=== PATIENT | female | born 1980 | race Asian ===

== ENCOUNTER 2018-07-16 00:39 | Inpatient (IN) | payer SELFPAY ==
[~2018-07-16] VITALS: Ht 162.6 cm; Wt 62.6 kg
[2018-07-16] MEDS: LR 1,000 ML IV SCH ×2 (01:05→04:43)
[2018-07-16] MEDS ORDERED: LR 1,000 ML IV ONE (01:07)
[2018-07-16] MEDS ORDERED: OXYTOCIN/0.9 % SODIUM CHLORIDE 1,000 ML IV SCH (01:07)
[2018-07-16] MEDS ORDERED: AMPICILLIN SODIUM 2 GM VIAL ONE (01:12)
[2018-07-16] MEDS ORDERED: AMPICILLIN SODIUM 2 GM in NS 100 ML IV ONE (01:15)
[2018-07-16] MEDS ORDERED: TERBUTALINE SULFATE 1 MG/ML VIAL SUBCUT ONE (01:15)
[2018-07-16] MEDS ORDERED: NALBUPHINE HCL 10 MG/ML AMP IVP PRN (01:15)
[2018-07-16 01:45] LABS: BASOPHILS # (AUTO) 0.1 K/uL (0.0-0.2); BASOPHILS % (AUTO) 0.6 % (0.0-2.0); EOSINOPHILS # (AUTO) 0.1 K/uL (0.0-0.4); EOSINOPHILS % (AUTO) 0.4 % (0.0-4.0); HEMATOCRIT 39.9 % (36-48); LYMPHOCYTES # (AUTO) 1.2 K/uL (1.0-5.5); LYMPHOCYTES % (AUTO) 8.3 % (20.5-51.5); MEAN CORPUSCULAR HEMOGLOBIN 31 pg (27-31); MEAN CORPUSCULAR HGB CONC 33 % (32-36); MEAN CORPUSCULAR VOLUME 94 fL (79.0-98.0); MONOCYTES # (AUTO) 0.4 K/uL (0.0-1.0); MONOCYTES % (AUTO) 2.6 % (1.7-9.3); NEUTROPHILS # (AUTO) 12.3 K/uL (1.8-7.7); NEUTROPHILS % (AUTO) 88.1 % (40.0-70.0); PLATELET COUNT (AUTO) 212 K/uL (130-430); RED BLOOD CELL COUNT(AUTO) 4.24 MIL/uL (4.2-6.2); RED CELL DISTRIBUTION WIDTH 11.9 % (9.0-15.0); WHITE BLOOD COUNT (AUTO) 14.1 K/uL (4.8-10.8)
[2018-07-16] MEDS ORDERED: ROPIVACAINE 0.2% 100 ML ONE ×2 (02:11→09:36)
[2018-07-16] MEDS ORDERED: fentaNYL CITRATE/PF 100 MCG/2 ML AMP ONE (02:11)
[2018-07-16] MEDS ORDERED: FENT2mCg/mL-ROPIVA0.2%/NS EPID 150 ML EP SCH ×2 (02:11)
[2018-07-16] MEDS ORDERED: LR 500 ML IV ONE (02:11)
[2018-07-16 02:37] VITALS: BP_SYST 118
[2018-07-16] MEDS: AMPICILLIN SODIUM 1 GM in NS 50 ML IV SCH ×2 (04:43→08:44)
[2018-07-16] MEDS ORDERED: AMPICILLIN SODIUM 1 GM VIAL ONE (04:44)
[2018-07-16] MEDS ORDERED: OXYTOCIN 10 UNIT/ML VIAL IM ONE (04:45)
[2018-07-16] MEDS ORDERED: BUPIVACAINE /PF 0.25% 30 ML VIAL INJ ONE (10:00)
[2018-07-16] MEDS ORDERED: HYDROcodone/ACETAMIN 5-325 MG TAB (NORCO/ VICODIN) PO PRN (12:00)
[2018-07-16] MEDS: ceFAZolin SODIUM 2 GM in D5W 50 ML IV SCH ×2 (14:20→22:10)
[2018-07-16] MEDS: OXYCODONE/ACETAMINOPHEN 5-325 TABLET PO PRN ×2 (17:57→22:08)
[2018-07-17 07:23] LABS: HEMATOCRIT 32.8 % (36-48)
[2018-07-17] MEDS ORDERED: MEASLES,MUMPS&RUBELLA VACC/PF 12500 UNIT/0.5 ML VIAL SUBQ PRN (18:00)
[2018-07-17] MEDS ORDERED: DIPH-TET-PERTUS Vaccine 0.5 ML VIAL (ADACEL) I.M. ONE (18:30)
[2018-07-17] MEDS: OXYCODONE/ACETAMINOPHEN 5-325 TABLET PO PRN (18:41)
== END 2018-07-17 19:15 | disposition home or self-care (01) | DRG 807 ==
LOC: SPU 00:39
PROVIDERS: ADMIT Obstetrics & Gynecology; ATTEND Obstetrics & Gynecology
PROC: 10D07Z6 Extraction of Products of Conception, Vacuum, Via Natural or Artificial Opening (ICD-10-PCS; principal; 2018-07-16)
PROC: 0W8NXZZ Division of Female Perineum, External Approach (ICD-10-PCS; 2018-07-16)
PROC: 3E0R3BZ Introduction of Anesthetic Agent into Spinal Canal, Percutaneous Approach (ICD-10-PCS; 2018-07-16)
PROC: 00HU33Z Insertion of Infusion Device into Spinal Canal, Percutaneous Approach (ICD-10-PCS; 2018-07-16)
DX: O69.1XX0 Labor and delivery complicated by cord around neck, with compression, not applicable or unspecified (principal); Z37.0 Single live birth; Z3A.39 39 weeks gestation of pregnancy
CPT/HCPCS: 36415; 81002-TC; 85018-TC; 85025; 86886; 86900; 86901; 87536; 90656; 90715; 94760; J0290; J0690; J2590; J2795; J3010; J3490; J7060; J7120